=== PATIENT | male | born 1935 | race African-American/Black ===

== ENCOUNTER 2016-07-19 08:31 | Inpatient (IN) | payer OTHER ==
[~2016-07-19] VITALS: Ht 172.7 cm; Wt 103.0 kg
--- NOTE | ~2016-07-19 | EKG ---
[address] [email or web address] [address] ELECTROCARDIOGRAM REPORT Name: ENIO MONTGOMERY Room #: 428-P ADM IN M.R.#: [id number] Admission: 07/19/16 Attend Phys: Philip Dalton MD Discharge: Date of : 39 Report #: [id number] THIS REPORT FOR: //name// [facility] ED Test Date: 2016-07-19 Test Time: 08:40:17 Pat Name: ENIO MONTGOMERY Department: Room: [facility] Gender: M Associate Merchandiser: Jyoti VELÁSQUEZ : 1935 Requested By: Darya Patterson Order Number: [id number] MD: Torsten Mcrae Measurements Intervals [place] Rate: 83 P: 25 WA: 161 QRS: -33 QRSD: 83 T: QT: 348 QTc: 409 Interpretive Statements Sinus rhythm Inferior infarct, old Nonspecific T wave abnormality Compared to ECG 04/24/2016 11:01:55 Nonspecific T wave abnormality now present Electronically Signed On 07-19-2016 14:37:25 AUTOMOTIVE BUYER by Torsten Mcrae [email or web address] <ELECTRONICALLY SIGNED> By: Torsten Mcrae MD, [facility] 07/19/16 1437 9 9 Torsten Mcrae MD, [facility] /EPI
[~2016-07-19 08:31] MED LIST: ASPIR 8181 MG PO; CRESTOR10 MG PO; DOXYCYCLINE HYC50 MG PO; FINASTERIDE5 MG PO; FLOMAX0.4 MG PO; LORTAB 10-3251 EACH PO; LOSARTAN POTAS100 MG PO; MELOXICAM15 MG PO; METFORMIN HCL1000 MG PO; MULTIGEN FOLIC1 EACH PO; NEURONTIN600 MG PO; NORTRIPTYLINE H10 M1 PO; PANTOPRAZOLE SO40 M1 PO; REFRESH OPTIVE10 M1 OP; RESTASIS1 EACH OPHTHALMIC; SYMBICORT160 MCG/4. INH; VITAMIN B-121000 MCG SL; VITAMIN D1000 UNI1 PO; XARELTO10 MG PO
[2016-07-19 08:38] VITALS: BP 145/90
[2016-07-19] MEDS ORDERED: ELIQUIS5 MG PO (09:12)
[2016-07-19 09:50] LABS: BASOPHILS 1.1 % (0.0-2.0); EOSINOPHILS 3.3 % (0.0-3.0); HEMATOCRIT 36.2 % (42.0-52.0); HEMOGLOBIN 11.7 gm/dL (14.0-18.0); LYMPHOCYTES 25.6 % (24.0-44.0); MCH 25.2 pg (26.0-34.0); MCHC 32.3 % (28.0-37.0); MCV 77.9 fL (80.0-100.0); MONOCYTES 8.8 % (1.0-8.0); PLATELET COUNT 192 thou/uL (150-400); POLYS 61.2 % (36.0-66.0); RBC 4.65 mil/uL (4.50-6.00); RDW 18.1 % (10.5-14.5); WBC 4.9 thou/uL (4.0-11.0)
[2016-07-19 09:51] LABS: ANION GAP 10 mmol/L (7-16); BUN 11 mg/dL (7-18); CALCIUM 9.4 mg/dL (8.5-10.1); CHLORIDE 106 mmol/L (98-107); CO2 26 mmol/L (21-32); CREATININE 1.1 mg/dL (0.6-1.3); GLUCOSE 115 mg/dL (70-99); POTASSIUM 4.3 mmol/L (3.5-5.1); SODIUM 142 mmol/L (136-145)
[2016-07-19 09:59] LABS: MANUAL DIFF NO
[2016-07-19 10:00] LABS: TROPONIN-I < 0.04 ng/mL (<0.04-0.07)
[2016-07-19 14:01] VITALS: BP 156/93
[2016-07-19 20:00] VITALS: BP 173/98
[2016-07-20 04:00] VITALS: BP 138/85
[2016-07-20 05:24] LABS: HEMATOCRIT 33.6 % (42.0-52.0); MCH 25.2 pg (26.0-34.0); MCHC 32.9 % (28.0-37.0); MCV 76.7 fL (80.0-100.0); RBC 4.38 mil/uL (4.50-6.00); RDW 17.6 % (10.5-14.5); WBC 4.8 thou/uL (4.0-11.0)
[2016-07-20 05:37] LABS: CALCIUM 9.1 mg/dL (8.5-10.1); CREATININE 1.1 mg/dL (0.6-1.3)
[2016-07-20 07:15] VITALS: BP 145/84
[2016-07-20] MEDS ORDERED: ANTIVERT25 MG PO ×2 (14:45→15:32)
[2016-07-20 14:55] VITALS: BP 145/84
== END 2016-07-20 16:33 | disposition home or self-care (01) | DRG 312 ==
LOC: ER 08:31 → EROBS 11:03 → 4E 11:03
PROVIDERS: Emergency Medicine; Hospitalist
DX: I95.1 Orthostatic hypotension (principal); E11.9 Type 2 diabetes mellitus without complications; I10 Essential (primary) hypertension; E78.00 Pure hypercholesterolemia, unspecified; E78.5 Hyperlipidemia, unspecified; G56.01 Carpal tunnel syndrome, right upper limb; K21.9 Gastro-esophageal reflux disease without esophagitis; Z96.659 Presence of unspecified artificial knee joint; N40.0 Benign prostatic hyperplasia without lower urinary tract symptoms; Z98.42 Cataract extraction status, left eye; Z86.718 Personal history of other venous thrombosis and embolism; Z98.890 Other specified postprocedural states; Z98.41 Cataract extraction status, right eye; Z89.411 Acquired absence of right great toe; Z79.899 Other long term (current) drug therapy; Z86.711 Personal history of pulmonary embolism; Z87.891 Personal history of nicotine dependence; Z83.79 Family history of other diseases of the digestive system
CPT/HCPCS: 10183

== ENCOUNTER → 2016-10-13 | Outpatient (CLI) | payer OTHER ==
[~2016-10-13] MED LIST changes: +ANTIVERT25 MG PO; +ELIQUIS5 MG PO
== END ==
LOC: MRI 08:39
DX: M47.26 Other spondylosis with radiculopathy, lumbar region (principal); M54.5 Low back pain

== ENCOUNTER 2017-04-01 05:30 | Inpatient (IN) | payer OTHER ==
--- NOTE | ~2017-04-01 | O ---
[facility] [place] [address] OPERATIVE REPORT Name: ENIO MONTGOMERY Room #: 447-P [facility] IN M.R.#: [id number] Admission: 04/01/17 Attend Phys: Mukul Gomez DO Discharge: 04/03/17 Date of : 39 Report #: [id number] THIS REPORT FOR: //name// CC: Myriam Blackwellmaninder Gomez DATE OF SERVICE: 04/02/2017 PREOPERATIVE DIAGNOSIS: Right ureteral stone. POSTOPERATIVE DIAGNOSES: Right ureteral stone, bladder stone. PROCEDURE: Cystoscopy, right retrograde pyelogram, right ureteroscopy, laser lithotripsy, stone extraction, right ureteral stent placement. SURGEON: Michael Miller MD MANUFACTURING INSPECTOR: None. ANESTHESIA: General with LMA. ESTIMATED BLOOD LOSS: Minimal. FLUIDS: See anesthesia flow sheet. SPECIMEN: Stone for analysis. DRAINS: Right 6-East [place]orese x 28 cm double-J ureteral stent. COMPLICATIONS: None. INDICATIONS: This is a 81-year-old gentleman who was transferred from [facility] with right flank pain, CT demonstrating what was read as approximately 1 cm of stone in the right distal ureter causing right hydronephrosis. There is also question of right bladder stone. He has been unable to manage his pain despite IV pain medication. We gave him options for outpatient treatment of his stone with shockwave lithotripsy versus inpatient ureteroscopy, laser lithotripsy, stent placement. He elected to proceed with ureteroscopy. Risks, benefits, alternatives discussed at length. Risks including bleeding, infection, damage to the ureter, ureteral stricture, need for stent, need for subsequent procedures. He acknowledged that he understood these risks. He asked pertinent questions, which were answered and ultimately elected to proceed. PROCEDURE AND FINDINGS: The patient was identified in the preoperative holding area. He was marked and consented. He was transported to the cystoscopy suite [address] [address] OPERATIVE REPORT Name: ENIO MONTGOMERY Room #: 447-P [facility] IN M.R.#: [id number] Admission: 04/01/17 Attend Phys: Mukul Gomez DO Discharge: 04/03/17 Date of : 39 Report #: [id number] where general anesthetic was administered. He was positioned in the dorsal lithotomy position with all appropriate pressure points padded. He was prepped and draped in typical sterile fashion. A timeout was performed confirming correct patient, procedure and laterality. He received preoperative IV antibiotics. We began by inserting the rigid cystoscope through the urethra into the bladder. Urethra was without abnormalities. 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 Bladder was notable for probably 2 cm jackstone, bladder stone. Bilateral ureteral orifices were orthotopic in position. There were no other stones, tumors or lesions. When examining the right ureteral orifice, it was heaped up. There was stone material coming from the ureteral orifice. This was gently pushed back up into the orifice using a flexible grasper to make room for a wire. Sensor wire was placed past the stone and navigated up the right ureter and into the right collecting system. Dual lumen catheter was used to perform retrograde pyelogram. This demonstrated again impacted stone in the right distal ureter with proximal hydroureteronephrosis. No other filling defects. The stone appeared to be more than the 1 cm that was read on the CT scan. I would estimate probably 2 cm of stone in his distal ureter in its entirety. Following this, a 4 cm x 18-[place]ore[place] dilating balloon was used to dilate the right ureteral orifice to pressure of 18 mmHg. Under radiographic guidance, the dilator was removed. A 6.9 [place] rigid ureteroscope was carefully passed through the urethra, prostate into the bladder and up the right ureteral orifice. Again, large amount of impacted stone material was encountered, probably 2 cm in total. This was lasered with a 365 micron holmium laser fiber to a power of 10 thompson. Stone was completely fragmented. Toward the end of laser, visualization became quite poor due to debris coming from now an obstructed right kidney as well as mucosal bleeding. He had been recently on anticoagulation. I extracted as much of the stone from the distal ureter as I could see into the bladder. At this point, we have been working for almost 90 minutes and again visualization remained poor. I decided to place a 6 [place]ore[place] x 28 cm double-J ureteral stent under radiographic guidance. Good proximal and distal curls were confirmed. Cystoscope was reinserted in the bladder. Bladder was drained and procedure was terminated. The patient was awakened and transported to recovery room having suffered no apparent complication. Plan will be for second stage right ureteroscopy to clear out the remaining stone material as well as laser cystolitholapaxy of his large bladder stone. We will attempt to get him scheduled for this in 2-3 weeks. In the interim, he will be discharged with stent in place. <ELECTRONICALLY SIGNED> By: Michael Miller MD 04/04/17 1135 [id number] [id number] Michael Miller MD /nt
[2017-04-01 08:00] VITALS: BP 148/65
[2017-04-01 16:00] VITALS: BP 150/85
[2017-04-01 20:53] VITALS: BP 162/101
[2017-04-02 00:24] VITALS: BP 146/78
[2017-04-02 04:15] VITALS: BP 151/74
[2017-04-02 06:38] LABS: HEMATOCRIT 35.6 % (42.0-52.0); HEMOGLOBIN 11.8 gm/dL (14.0-18.0); MCH 26.3 pg (26.0-34.0); MCHC 33.2 g/dL (28.0-37.0); MCV 79.1 fL (80.0-100.0); PLATELET COUNT 166 thou/uL (150-400); RDW 17.6 % (10.5-14.5); WBC 6.8 thou/uL (4.0-11.0)
[2017-04-02 06:47] LABS: MANUAL DIFF YES
[2017-04-02 06:51] LABS: CALCIUM 8.8 mg/dL (8.5-10.1); POTASSIUM 4.4 mmol/L (3.5-5.1)
[2017-04-02 08:35] LABS: ABSOLUTE NEUTROPHILS 4.9 thou/uL (1.4-8.2); ANISOCYTOSIS 1+; MICROCYTES 2+; PLATELET ESTIMATE NORMAL; TOTAL CELL COUNT 100
[2017-04-02 08:38] VITALS: BP 140/76
[2017-04-02 14:13] VITALS: BP 154/81
[2017-04-02 16:47] VITALS: BP 150/82
[2017-04-02 20:45] VITALS: BP 143/74
[2017-04-03 03:30] VITALS: BP 127/52
[2017-04-03 08:00] VITALS: BP 142/50
[2017-04-03] MEDS ORDERED: HYDROCODON-ACE1 EAC8 PO (08:42)
[2017-04-03 09:19] VITALS: BP 127/52
== END 2017-04-03 11:35 | disposition home or self-care (01) | DRG 669 ==
LOC: EROBS 05:30 → 4S 05:30
PROVIDERS: Family Medicine
DX: N13.2 Hydronephrosis with renal and ureteral calculous obstruction (principal); N21.0 Calculus in bladder; I10 Essential (primary) hypertension; E78.5 Hyperlipidemia, unspecified; N40.0 Benign prostatic hyperplasia without lower urinary tract symptoms; K21.9 Gastro-esophageal reflux disease without esophagitis; E78.00 Pure hypercholesterolemia, unspecified; J44.9 Chronic obstructive pulmonary disease, unspecified; M19.90 Unspecified osteoarthritis, unspecified site; E11.40 Type 2 diabetes mellitus with diabetic neuropathy, unspecified; Z79.899 Other long term (current) drug therapy; Z98.42 Cataract extraction status, left eye; Z98.41 Cataract extraction status, right eye; Z87.891 Personal history of nicotine dependence
CPT/HCPCS: 10102; 50010; 50101; 50164; 50478; 51179; 51767; 53650; 56815; 62110; 62900; 70005

== ENCOUNTER → 2017-11-04 | Outpatient (CLI) | payer OTHER ==
[~2017-11-04] MED LIST changes: +HYDROCODON-ACE1 EAC8 PO
== END ==
LOC: ULTRA 10-29 07:58
DX: N17.8 Other acute kidney failure (principal); N40.0 Benign prostatic hyperplasia without lower urinary tract symptoms

== ENCOUNTER → 2019-09-12 | Outpatient (CLI) | payer OTHER | LOC: RAD 12:26 | DX: J98.4 Other disorders of lung (principal) ==

== ENCOUNTER → 2019-12-13 | Outpatient (CLI) | payer OTHER | LOC: SJCVC 13:15 | PROVIDERS: ATTEND Internal Medicine | DX: R94.31 Abnormal electrocardiogram [ECG] [EKG] (principal); I48.91 Unspecified atrial fibrillation; I10 Essential (primary) hypertension; E78.5 Hyperlipidemia, unspecified; E11.9 Type 2 diabetes mellitus without complications; Z79.899 Other long term (current) drug therapy; Z87.891 Personal history of nicotine dependence ==

== ENCOUNTER → 2020-12-12 | Outpatient (CLI) | payer OTHER | LOC: ULTRA 09:39 | PROVIDERS: ATTEND Family Medicine | DX: I65.23 Occlusion and stenosis of bilateral carotid arteries (principal); I82.403 Acute embolism and thrombosis of unspecified deep veins of lower extremity, bilateral; E78.5 Hyperlipidemia, unspecified; E11.65 Type 2 diabetes mellitus with hyperglycemia; M79.2 Neuralgia and neuritis, unspecified; G89.29 Other chronic pain; R42 Dizziness and giddiness ==

== ENCOUNTER → 2021-02-19 | Outpatient (CLI) | payer OTHER | LOC: MRI 10:45 | PROVIDERS: ATTEND Internal Medicine | DX: M50.223 Other cervical disc displacement at C6-C7 level (principal); M48.02 Spinal stenosis, cervical region; M79.604 Pain in right leg; M79.602 Pain in left arm ==

== ENCOUNTER → 2021-02-19 | Outpatient (CLI) | payer OTHER | LOC: SJCVCIMAG 10:59 | PROVIDERS: ATTEND Internal Medicine | DX: I48.0 Paroxysmal atrial fibrillation (principal); I49.3 Ventricular premature depolarization; E78.5 Hyperlipidemia, unspecified; R07.89 Other chest pain; I10 Essential (primary) hypertension; M79.601 Pain in right arm; M79.602 Pain in left arm; Z79.899 Other long term (current) drug therapy; Z87.891 Personal history of nicotine dependence ==

== ENCOUNTER → 2021-03-14 | Outpatient (CLI) | payer OTHER ==
[~2021-03-14] VITALS: Ht 175.3 cm; Wt 95.9 kg
[~2021-03-14] MED LIST changes: +ALLOPURINOL 10100 M3 PO; +B-121000 MC2 PO; +JARDIANCE10 MG PO; +LEVOTHYROXINE50 MC1 PO; +NEURONTIN300 MG PO; +PROSCAR 5MG TABL5 MG PO; +REPATHA SU140 MG/1 M SUBQ; +SPIRIVA RESPIMAT4 GM INH; +VITAMIN D350 MC3 PO
[2021-03-14 10:04] LABS: HEMATOCRIT 42.4 % (42.0-52.0); HEMOGLOBIN 13.9 gm/dL (14.0-18.0); MCH 27.9 pg (26.0-34.0); MCHC 32.7 g/dL (28.0-37.0); MCV 85.3 fL (80.0-100.0); RBC 4.97 mil/uL (4.50-6.00); RDW 16.7 % (10.5-14.5); WBC 4.5 thou/uL (4.0-11.0)
[2021-03-14 10:11] VITALS: BP 147/78
[2021-03-14 10:19] LABS: CALCIUM 8.9 mg/dL (8.5-10.1); CREATININE 2.3 mg/dL (0.7-1.3); POTASSIUM 4.4 mmol/L (3.5-5.1)
--- NOTE | 2021-03-28 12:49 | CATHLAB ---
[facility] [place] [address] INVASIVE PROCEDURE REPORT Name: ENIO MONTGOMERY Room #: REG ROSE MARY Scooter#: [id number] Admission: 03/14/21 Attend Phys: Israel Vizcaino Discharge: Date of : 39 Report #: [id number] THIS REPORT FOR: cc: Myriam Jones MD, Constance M. MD Lammoglia, Francisco J. MD ~ APPROVED REPORT Study performed: 03/14/2021 12:06:44 Patient Details Patient Status: Out-Patient Room #: The patient is a 85 year-old male Event Personnel Israel Vizcaino Extracorporeal Technician, Dulce Maria Moyer RN RN, Kateryna Lieberman RT(R)() Scrub, Ivanna Meredith RTR Monitor, Rosemarie Valdez RTR Scrub Procedures Performed Left Heart Cath w/or w/o Coronaries [id number] [facility] Art Access - R femoral artery* 28523 Initial Mod Sed Same Phys/QHP Gr5y 533509 Hemostasis w/ Mynx, supervision of conscious sedation Indication Positive stress test, Chest pain Procedure Narrative The Right Groin^ was infiltrated with 1% Lidocaine subcutaneous anesthesia. A PINNACLE 5FR Sheath #[id number] sheath was inserted into the RFA^. Coronary angiography was performed using coronary diagnostic catheters. The right coronary system was accessed and visualized with a JR4 catheter. The left coronary system was accessed and visualized with a JL4 catheter. The left ventricle was accessed and visualized with a PIGTAIL catheter. Left ventricular/Aortic Valve gradient assessed via catheter pullback. Left ventriculogram was performed in 30 degree projection. Closure device was deployed with a Fr MYNXGRIP 5F #[id number]. The patient tolerated the procedure well and there were no complications associated with the procedure. There was no hematoma. Intraoperative Conscious Sedation Sedation start time: 12:40 Case end Time: [facility] [address] [place] [address] INVASIVE PROCEDURE REPORT Name: ENIO MONTGOMERY Room #: REG ROMIE Helms#: [id number] Admission: 03/14/21 Attend Phys: Israel Virgen Discharge: Date of : 39 Report #: [id number] 13:12 Versed 2 mg Fluoro Time: 2.70 minutes Dose: DAP 6218.80 cGycm2 966 mGy Contrast Type and Amount: Visipaque 45 ml Coronary Angiography The patient's coronary anatomy is right dominant. Diagnostic Cath Left Main Moderate to large caliber vessel normal origin bifurcates at the descending left circumflex free of high-grade disease. There is a mild proximal tapering noted which is not flow-limiting LAD Monitor large-caliber type II vessel coursing the anterior interventricular sulcus giving rise to several diagonal branches. The vessel rapidly tapers in its distal third where there appears to be a eccentric lesion of approximately 50% at worst. The vessel and continues to tapers with more moderate and prominent intraluminal plaquing noted Diagonal 1 Small caliber vessel coursing on the anterolateral aspect of the left ventricle free of high-grade disease Diagonal 2 Small caliber vessel without significant high-grade lesions noted Circumflex Moderate to large caliber nondominant vessel coursing in the AV groove gives rise to an early moderate caliber marginal branch and continues on posteriorly rapidly tapering in size and terminating a small string-like posterior wall branch OM1 Moderate caliber vessel coursing on the lateral aspect of the heart without significant high-grade lesions noted. There is a mild eccentric 30% plaque soon after its origin. Continues on terminates is a small bifurcating vessel Right Coronary Large-caliber dominant vessel of normal origin courses in the AV groove giving rise to small RA and RV branches. Prior to reaching the acute margin there is a concentric narrowing of approximately 30% which is not flow-limiting. The vessel continues to the crux gives rise to posterior descending artery and then continues on terminating a small posterior wall branch after having a mild eccentric 30% plaque at its origin R PDA Moderate caliber vessel coursing in the posterior interventricular sulcus without significant high-grade lesions present Left Ventriculography Left Ventriculography was not performed. [facility] [address] [place] [address] INVASIVE PROCEDURE REPORT Name: ENIO MONTGOMERY Room #: REG Scooter#: [id number] Admission: 03/14/21 Attend Phys: Israel Virgen Discharge: Date of : 39 Report #: [id number] Hemodynamics The aortic pressure is 173/72 mmHg with a mean of 114 mmHg. The left ventricular pressure is 166/8 mmHg with a mean of mmHg. The left ventricular end diastolic pressure is 16 mmHg. Pullback from the left ventricle to the aorta revealed no gradient across the aortic valve. Conclusion 1. Coronary disease, mild 2. Normal hemodynamic Recommendations Cardiac Risk Reduction Program Medical Therapy <ELECTRONICALLY SIGNED> By: Isarel Vizcaino MD 03/28/21 1249 1249 1249 Israel Vizcaino MD /INF
== END | disposition home or self-care (01) ==
LOC: CATH 08:52
PROVIDERS: ATTEND Internal Medicine
DX: R94.39 Abnormal result of other cardiovascular function study (principal); I25.10 Atherosclerotic heart disease of native coronary artery without angina pectoris; R07.9 Chest pain, unspecified; I10 Essential (primary) hypertension; E78.5 Hyperlipidemia, unspecified; I48.0 Paroxysmal atrial fibrillation; E11.9 Type 2 diabetes mellitus without complications; K21.9 Gastro-esophageal reflux disease without esophagitis; Z98.890 Other specified postprocedural states; Z79.899 Other long term (current) drug therapy; Z79.01 Long term (current) use of anticoagulants; Z82.49 Family history of ischemic heart disease and other diseases of the circulatory system; Z87.891 Personal history of nicotine dependence